=== PATIENT | female | born 1995 | race Caucasian/White ===

== ENCOUNTER 2022-03-29 20:40 | Emergency (ER) | payer OTHER ==
[~2022-03-29] VITALS: Ht 160 cm; Wt 58.5 kg
[2022-03-30] MEDS ORDERED: NORFLEX100MG PO (01:02)
[2022-03-30] MEDS ORDERED: KETO10TA2 PO (01:02)
== END 2022-03-30 02:22 ==
LOC: ER 20:40
DX: T14.8XXA Other injury of unspecified body region, initial encounter (principal); V49.88XA Car occupant (driver) (passenger) injured in other specified transport accidents, initial encounter; Y93.89 Activity, other specified; Y92.89 Other specified places as the place of occurrence of the external cause; Y99.9 Unspecified external cause status